=== PATIENT | female | born 1995 | race American Indian/Alaskan Native ===

== ENCOUNTER 2020-01-23 10:37 | Emergency (ER) | payer SELFPAY ==
[2020-01-23 10:45] VITALS: BP 115/81
--- NOTE | 2020-01-23 12:54 | Emergency Department Report ---
- General Chief Complaint: Laceration/Recheck/Suture Stated Complaint: ANKLE Time Seen by Provider: 01/23/20 11:21 Source: patient Mode of arrival: Ambulatory Limitations: No Limitations - History of Present Illness Initial Comments: 24-year-old F [place]ian female resents emergency department for evaluation of a right ankle suture repair which was obtained while she was recently incarcerated about 5 days ago. She is worried because she feels the area swelling and is becoming throbbing and painful and she has no medications. Reports no fever, chills, sweats no nausea, no vomiting, no chest pain or palpitations. Extremity Location: Right: Ankle Associated Symptoms: pain. denies: suspect foreign body present, unable to move injured part, nausea/vomiting - Related Data Previous Rx's Medication Instructions Recorded Last Taken Type Chlorhexidine Gluconate [Hibiclens] 10 ml TP BID #240 liquid 01/23/20 Unknown Rx Ketorolac [Toradol] 10 mg PO Q6H PRN #14 tablet 01/23/20 Unknown Rx cephALEXin [Keflex] 500 mg PO Q8HR #21 cap 01/23/20 Unknown Rx Allergies Allergy/AdvReac Type Severity Reaction Status Date / Time No Known Allergies Allergy Unverified 01/23/20 10:41 ED Review of Systems ROS: Stated complaint: ANKLE Other details as noted in HPI Comment: All other systems reviewed and negative ED Past Medical Hx - Past Medical History Previous Medical History?: No - Surgical History Past Surgical History?: No - Social History Smoking Status: Never Smoker Substance Use Type: None - Medications Home Medications: Home Medications Medication Instructions Recorded Confirmed Last Taken Type Chlorhexidine Gluconate [Hibiclens] 10 ml TP BID #240 liquid 01/23/20 Unknown Rx Ketorolac [Toradol] 10 mg PO Q6H PRN #14 tablet 01/23/20 Unknown Rx cephALEXin [Keflex] 500 mg PO Q8HR #21 cap 01/23/20 Unknown Rx ED Physical Exam - General Limitations: No Limitations General appearance: alert, in no apparent distress - Head Head exam: Present: atraumatic, normocephalic - Eye Eye exam: Present: normal appearance - ENT ENT exam: Present: mucous membranes moist - Neck Neck exam: Present: normal inspection - Respiratory Respiratory exam: Present: normal lung sounds bilaterally. Absent: respiratory distress - Cardiovascular Cardiovascular Exam: Present: regular rate, normal rhythm. Absent: systolic murmur, diastolic murmur, rubs, gallop - GI/Abdominal GI/Abdominal exam: Present: soft, normal bowel sounds - Extremities Exam Extremities exam: Present: normal inspection, normal capillary refill - Expanded Lower Extremity Exam Right Ankle exam: Present: tenderness, swelling, laceration (Laceration is to the right ankle with 5 sutures placed there is some local swelling no significant erythema minimal warmth no lymphangitis. No wound discharge. Pulses 2+). Absent: abrasion, crepidus, dislocation - Back Exam Back exam: Present: normal inspection - Neurological Exam Neurological exam: Present: alert, oriented X3 - Psychiatric Psychiatric exam: Present: normal affect, normal mood - Skin Skin exam: Present: warm, dry, intact, normal color. Absent: rash ED Course Vital Signs 01/23/20 10:42 Temperature 97.6 F Pulse Rate 77 Respiratory 16 Rate Blood Pressure 115/81 O2 Sat by Pulse 99 Oximetry ED Medical Decision Making - Medical Decision Making 24-year-old female 5 days status post right ankle laceration repair coming in for evaluation there is some mild evidence of possible early wound and infection plan is to treat. Advised to follow-up and 7 to 8 days for evaluation for possible suture removal. At this point in time no significant complication. , 5 sutures Critical care attestation.: If time is entered above; I have spent that time in minutes in the direct care of this critically ill patient, excluding procedure time. ED Disposition Clinical Impression: Wound infection, Suture check Disposition: DC-01 TO HOME OR SELFCARE Is pt being admited?: No Does the pt Need Aspirin: No Condition: Stable Instructions: Suture Care (ED), Acute Wound Care (ED) Prescriptions: Chlorhexidine Gluconate [Hibiclens] 10 ml TP BID #240 liquid cephALEXin [Keflex] 500 mg PO Q8HR #21 cap Ketorolac [Toradol] 10 mg PO Q6H PRN #14 tablet PRN Reason: Pain Referrals: [facility] [Provider Group] - 3-5 Days
== END 2020-01-23 13:05 | disposition home or self-care (01) ==
LOC: ED 10:37
DX: T81.49XA Infection following a procedure, other surgical site, initial encounter (principal); Z48.02 Encounter for removal of sutures; Z79.899 Other long term (current) drug therapy
CPT/HCPCS: 99282

== ENCOUNTER 2020-01-31 12:19 | Emergency (ER) | payer SELFPAY ==
[2020-01-31 12:34] VITALS: BP 123/91
--- NOTE | 2020-01-31 13:26 | Emergency Department Report ---
Suture/Staple Removal - HPI Chief Complaint: Laceration/Recheck/Suture Stated Complaint: ankle stitches removal Time Seen by Provider: 01/31/20 13:03 When Sutures or [place] Placed: 8-10 Days Ago Wound Location: Right lower later ankle ED Review of Systems ROS: Stated complaint: ankle stitches removal Other details as noted in HPI Comment: All other systems reviewed and negative Constitutional: denies: chills, fever Skin: other (no redness, no swelling or drianage from site) ED Past Medical Hx - Past Medical History Previous Medical History?: No - Surgical History Past Surgical History?: No - Social History Smoking Status: Never Smoker Substance Use Type: None - Medications Home Medications: Home Medications Medication Instructions Recorded Confirmed Last Taken Type Chlorhexidine Gluconate [Hibiclens] 10 ml TP BID #240 liquid 01/23/20 Unknown Rx Ketorolac [Toradol] 10 mg PO Q6H PRN #14 tablet 01/23/20 Unknown Rx cephALEXin [Keflex] 500 mg PO Q8HR #21 cap 01/23/20 Unknown Rx Suture Removal Exam - Exam General: Vital signs noted. No distress. Alert and acting appropriately. Wound: No Pathologic Erythema, No Tenderness, No Drainage, No Pus, No Wound Dehiscence Other Systems: All other systems reviewed and are unremarkable. ED Course Vital Signs 01/31/20 12:33 Temperature 97.9 F Pulse Rate 89 Respiratory 16 Rate Blood Pressure 123/91 [Right] O2 Sat by Pulse 98 Oximetry - Reevaluation(s) Reevaluation #1: 01/31/20 13:19 approx. 4-5 sutures removed pt tolerated well. ED Recheck MDM - Differential Diagnosis Suture/Staple Removal - Medical Decision Making right lower ankle sutures with no s/s of infection removed with ease. Critical Care Time: No Critical care attestation.: If time is entered above; I have spent that time in minutes in the direct care of this critically ill patient, excluding procedure time. ED Disposition Clinical Impression: Visit for suture removal Disposition: DC-01 TO HOME OR SELFCARE Is pt being admited?: No Does the pt Need Aspirin: No Condition: Stable Instructions: Suture Removal (ED) Additional Instructions: keep wound clean and dry. Follow up if you develop redness pain or drainage. Take [id number] Advil or Tylenol as directed by package insert for any pain or discomfort Referrals: PRIMARY CARE, [Primary Care Provider] - 3-5 Days Time of Disposition: 13:27
== END 2020-01-31 13:53 | disposition home or self-care (01) ==
LOC: ED 12:19
DX: S91.011A Laceration without foreign body, right ankle, initial encounter (principal); Z79.899 Other long term (current) drug therapy; Z48.02 Encounter for removal of sutures; X58.XXXA Exposure to other specified factors, initial encounter; Y93.89 Activity, other specified; Y92.89 Other specified places as the place of occurrence of the external cause; Y99.8 Other external cause status